=== PATIENT | female | born 1955 | race Two or more races ===

== ENCOUNTER 2016-10-20 03:53 | Emergency (ER) | payer OTHER ==
[~2016-10-20] VITALS: Ht 154.9 cm; Wt 65.8 kg
[~2016-10-20 03:53] MED LIST: ANTIVERT PO; AVANDIA PO; CEFTIN PO; GLUCOPHAGE XR500 MG; GLYNASE; GLYNASE PO; HYDROCODONE-APA1 T33 PO; IMITREX PO; IMITREX50 MG PO; KLONOPIN PO; LIPITOR PO; LISINOPRIL PO; LOPID600 MG PO; LORTAB 5/500 TA1 TA1 PO; LORTAB 7.5-5001 TAB; MOBIC; MOBIC PO; NORTRIPTYLINE H10 MG PO; PHENERGAN PO; PHENERGAN12.5 MG PO; PHENERGAN25 MG PO; PREVPAC PA1 COMB.PKG PO; TAMIFLU75 M1 DOB; TOPAMAX PO; TYLOX 5/500 CAP1 CAP PO; ZOFRAN ODT4 MG PO; ZOFRANODT PO
== END 2016-10-20 06:31 | disposition home or self-care (01) ==
LOC: CED 03:53
DX: R51 Headache (principal); R11.2 Nausea with vomiting, unspecified; E11.9 Type 2 diabetes mellitus without complications; I10 Essential (primary) hypertension; Z98.51 Tubal ligation status; Z79.899 Other long term (current) drug therapy; Z88.0 Allergy status to penicillin; Z88.1 Allergy status to other antibiotic agents
CPT/HCPCS: 36415; 96361; 96374; 96375; 96376; 99284; J1100; J1200; J1885; J2550; J2765